=== PATIENT | female | born 1970 | race Caucasian/White ===

== ENCOUNTER 2020-03-07 20:07 | Emergency (ER) | payer OTHER ==
[2020-03-07] MEDS ORDERED: ACETAMINOPHEN 500 MG TABLET (FP) ONE (20:44)
[2020-03-07] MEDS ORDERED: ACETAMINOPHEN 500 MG TABLET (FP) PO ONE (20:44)
[2020-03-07 20:51] VITALS: BP 106/73; PULSE 104; TEMP 98.3; BMI 18.6
[2020-03-07] MEDS ORDERED: LIDO 2%/EPI 1:200000 PRESRVFRE (20 ML SDVIAL) ONE (20:57)
--- NOTE | 2020-03-08 00:37 | PDOC ---
Documentation entered by Prasanna Yap SCRIBE, acting as scribe for Marii De León MD. Marii De León MD: This documentation has been prepared by the Fracisco tsoll Angel, SCRIBE, under my direction and personally reviewed by me in its entirety. I confirm that the documentation accurately reflects all work, treatment, procedures, and medical decision making performed by me. History of Present Illness - General Chief Complaint: Injury Stated Complaint: HIT HEAD ON GLASS DOOR Time Seen by Provider: 03/07/20 20:10 History Source: Patient Exam Limitations: No Limitations - History of Present Illness Initial Comments: 03/07/20 20:56 The patient is a 49 year old female with a significant past medical history of protein s deficiency who presents to the ED with a laceration to her face. The patient states she walked into a glass sliding door, striking her head. The wound was bleeding at the time but she applied pressure to stop it. The patient denies any LOC and states the door didnt shatter. She does report an episode of palpitations but feels fine here in the ED. The patients immunizations are up to date. The patient notes easy bruising due to her protein s deficiency but has never had trouble healing. The patient denies any vision changes, neck pain, or any other complaints. Past History - Medical History Allergies/Adverse Reactions: Allergies Allergy/AdvReac Type Severity Reaction Status Date / Time No Known Allergies Allergy Verified 03/07/20 20:08 Home Medications: Ambulatory Orders Alprazolam [Xanax] 1 mg PO PRN 03/07/20 Fluoxetine HCl [Prozac] mg PO DAILY 03/07/20 Trazodone HCl 50 mg PO HS 03/07/20 - Psycho-Social/Smoking History Smoking History: Current every day smoker Have you smoked in the past 12 months: Yes Number of Cigarettes Smoked Daily: 6 'Breaking Loose' booklet given: 10/26/13 Review of Systems - Review of Systems Able to Perform ROS?: Yes Comments:: 03/07/20 20:59 GENERAL/CONSTITUTIONAL: No fever or chills. No weakness. HEAD, EYES, EARS, NOSE AND THROAT: No change in vision. No ear pain or discharge. No sore throat. CARDIOVASCULAR: No chest pain or shortness of breath. RESPIRATORY: No cough, wheezing, or hemoptysis. GASTROINTESTINAL: No nausea, vomiting, diarrhea or constipation. GENITOURINARY: No dysuria, frequency, or change in urination. MUSCULOSKELETAL: No joint or muscle swelling or pain. No neck or back pain. SKIN: +Laceration above the right eyebrow. No rash. NEUROLOGIC: No headache, vertigo, loss of consciousness, or change in strength/sensation. ENDOCRINE: No increased thirst. No abnormal weight change. HEMATOLOGIC/LYMPHATIC: No anemia, easy bleeding, or history of blood clots. ALLERGIC/IMMUNOLOGIC: No hives or skin allergy. *Physical Exam - Physical Exam 03/07/20 20:58 GENERAL: Awake, alert, and fully oriented, in no acute distress HEAD: +2cm full thickness v shaped laceration above mid right eyebrow. EYES: PERRLA, EOMI, sclera anicteric, conjunctiva clear ENT: Auricles normal inspection, hearing grossly normal, nares patent, oropharynx clear without exudates. Moist mucosa NECK: Normal ROM, supple, no lymphadenopathy, JVD, or masses LUNGS: Breath sounds equal, clear to auscultation bilaterally. No wheezes, and no crackles HEART: Regular rate and rhythm, normal S1 and S2, no murmurs, rubs or gallops ABDOMEN: Soft, nontender, normoactive bowel sounds. No guarding, no rebound. No masses EXTREMITIES: Normal range of motion, no edema. No clubbing or cyanosis. No cords, erythema, or tenderness NEUROLOGICAL: Cranial nerves II through XII grossly intact. Normal speech, normal gait SKIN: Warm, Dry, normal turgor, no rashes or lesions noted. Procedures - Laceration/Wound Repair Right Eye Wound Length: to 2.5 cm Wound's Depth, Shape: linear Betadine Prep: No (Hibiclens/ethinyl) Anesthesia: 2% Lidocaine w/ Epi Amount of Anesthetic (ccs): 1 Wound Repaired With: Sutures Suture Size/Type: 5:0 Number of Sutures: 4 Layer Closure: No Sterile Dressing Applied: No Splint Applied: No Sling Applied: No Progress: Right eyebrow wound cleansed using Hibiclens/ethanol solution and sterilely draped. 1 mL of 2% lidocaine with epinephrine injected into the wound for local anesthesia. Wound irrigated/cleansed with 20 mL of sterile normal saline. Wound edges closely approximated and 4 interrupted sutures of 5-0 nylon placed for closure of the wound. Bacitracin applied to the wound surface. Patient tolerated procedure well ED Progress Note - Progress Note Progress Note: As noted above, this 49-year-old woman with protein S deficiency and anxiety but no other significant past medical history presents with laceration sustained above her right eyebrow when she accidentally bumped into a sliding glass door. She had no loss of consciousness and did not sustain any other injury. She is alert and oriented x3 on exam without neurologic deficit. 2 cm full-thickness laceration present in the mid right eyebrow area. Repair of the laceration performed as noted above Patient discharged with instructions to elevate her head tonight and apply cool dry compresses to the area around the laceration to prevent extensive bruising (patient has history of extensive bruising secondary to her protein S deficiency). She should apply bacitracin or Neosporin ointment to the wound daily until sutures are removed. For 2 days, she should keep the area as dry as possible, then can wet the area briefly but no immersion until sutures out. Sutures should be removed in 5 to 7 days (patient's plastic surgeon had texted her that the sutures should be removed in 7 days). She should return here sooner or see her doctor if there are signs of infection (redness/swelling/pain around the wound) Discharge - Discharge Information Problems reviewed: Yes Clinical Impression/Diagnosis: Eyebrow laceration Qualifiers: Encounter type: initial encounter Laterality: right Qualified Code(s): S01.111A - Laceration without foreign body of right eyelid and periocular area, initial encounter Condition: Stable Disposition: HOME - Follow up/Referral - Patient Discharge Instructions Patient Printed Discharge Instructions: How to Care for a Laceration After Repair Additional Instructions: Keep head elevated with extra pillow tonight Cold, dry compresses to area of wound for the next 24 hours Keep wound as dry as possible for 48 hours, then can wet briefly until sutures are out Bacitracin/Neosporin ointment to wound daily until sutures removed Return or see your doctor if area becomes red, swollen or more painful Have sutures removed in 1 week as per your plastic surgeon - Post Discharge Activity
== END 2020-03-07 21:25 | disposition home or self-care (01) ==
LOC: FER 20:07
PROC: 0HQ0XZZ Repair Scalp Skin, External Approach (ICD-10-PCS; principal; 2020-03-07)
DX: S01.111A Laceration without foreign body of right eyelid and periocular area, initial encounter (principal)
CPT/HCPCS: 99283-25

== ENCOUNTER 2023-07-09 10:41 | Inpatient (IN) | payer OTHER ==
[2023-07-09] MEDS ORDERED: SODIUM CHLORIDE 0.9% 500 ML INFUS.BAG IV ONE ×2 (11:25→12:34)
[2023-07-09] MEDS ORDERED: ONDANSETRON 4 MG/2 ML VIAL IVPUSH ONE (11:25)
[2023-07-09] MEDS ORDERED: ONDANSETRON 4 MG/2 ML VIAL ONE (11:31)
[2023-07-09] MEDS ORDERED: FAMOTIDINE 20 MG/50 ML IVPB 20 MG/50 ML MG IVPB ONE ×2 (11:42→12:13)
[2023-07-09] MEDS ORDERED: LORazepam 2 MG/ML SDV VIAL IVPUSH STA (11:42)
[2023-07-09 12:24] LABS: HEMOGLOBIN 11.9 G/dL (10.7-15.3); MCH 33.6 pg (25.7-33.7); MCHC 33.9 g/dl (32.0-36.0); MEAN CELL VOLUME 98.8 fl (80-96); MEAN PLT VOLUME 8.3 fl (7.5-11.1); RBC 3.54 10^6/uL (3.60-5.2); WHITE BLOOD COUNT 3.9 10^3/uL (4.0-10.8)
[2023-07-09 12:28] LABS: ALBUMIN 4.5 g/dl (3.4-5.0); BILIRUBIN,TOTAL 1.2 mg/dl (0.2-1); CALCIUM 10.3 mg/dl (8.5-10.1); CREATININE 0.7 mg/dl (0.6-1.3); INR 1.06 (0.83-1.09); MAGNESIUM 1.2 mg/dL (1.8-2.4); PHOSPHOROUS 3.2 (2.5-4.9); POTASSIUM 3.3 mmol/L (3.5-5.1); PROTHROMBIN TIME (PATIENT) 12.3 SEC (9.7-13.0); TOT PROT 7.1 g/dl (6.4-8.2)
[2023-07-09 12:31] LABS: ACTIVATED PTT 25.3 SECONDS (25.2-36.5)
[2023-07-09] MEDS ORDERED: MAGNESIUM SULF 50% (8.12 MEQ/2 ML-1 GM VIAL) IVPB ONE (12:35)
[2023-07-09] MEDS ORDERED: POTASSIUM CHLORIDE TABS 20 MEQ TABLET.ER (FP) PO ONE ×2 (12:35→12:54)
[2023-07-09] MEDS ORDERED: KCL 10 MEQ IVPB 10 MEQ/100 ML INFUS.BAG IVPB SCH (12:45)
[2023-07-09] MEDS ORDERED: MAGNESIUM SULFATE IN WATER 2 GM/50 ML IVPB IVPB ONE (12:53)
[2023-07-09] MEDS ORDERED: KCL 10 MEQ IVPB 10 MEQ/100 ML INFUS.BAG IVPB ONE (12:54)
[2023-07-09 12:55] LABS: VENOUS BASE EXCESS 1.9 mmol/L (-2-2); VENOUS O2 SATURATION 46.3 % (70-80); VENOUS PCO2 40.1 mmHg (38-52); VENOUS PH 7.434 (7.310-7.410)
[2023-07-09 12:59] LABS: EPITHELIAL CELLS 0-5 /hpf
[2023-07-09] MEDS ORDERED: LORazepam 2 MG/ML SDV VIAL IVPUSH ONE (14:39)
[2023-07-09] MEDS ORDERED: SODIUM CHLORIDE 1,000 ML IV SCH (15:00)
[2023-07-09] MEDS ORDERED: ONDANSETRON 4 MG/2 ML VIAL IVPUSH PRN (15:03)
[2023-07-09] MEDS ORDERED: LORazepam 2 MG/ML SDV VIAL IVPUSH PRN (15:04)
[2023-07-09] MEDS: chlordiazePOXIDE HCL 25 MG CAPSULE PO SCH ×2 (16:59→22:17)
[2023-07-09] MEDS: THIAMINE HCL 200 MG/2 ML VIAL IVPB SCH (16:59)
[2023-07-09 18:27] LABS: CALCIUM 9.2 mg/dl (8.5-10.1); CREATININE 0.7 mg/dl (0.6-1.3); MAGNESIUM 2.1 mg/dL (1.8-2.4); PHOSPHOROUS 2.7 (2.5-4.9); POTASSIUM 3.6 mmol/L (3.5-5.1)
[2023-07-09] MEDS ORDERED: DEXTROSE 5%-WATER - 1,000 ML IV SCH (19:00)
[2023-07-09 22:19] LABS: CALCIUM 9.4 mg/dl (8.5-10.1); CREATININE 0.7 mg/dl (0.6-1.3); POTASSIUM 3.3 mmol/L (3.5-5.1)
[2023-07-09 23:39] VITALS: BMI 19.6
[2023-07-10 01:16] LABS: METHADONE, UR NEGATIVE (NEGATIVE); PHENCYCLIDINE,URINE NEGATIVE (NEGATIVE)
[2023-07-10 02:18] LABS: COCAINE, UR NEGATIVE (NEGATIVE); OPIATES, URI NEGATIVE (NEGATIVE); URINE AMPHETAMINES NEGATIVE (NEGATIVE); URINE BARBITURATES NEGATIVE (NEGATIVE); URINE BENZODIAZEPINES POSITIVE (NEGATIVE)
[2023-07-10] MEDS: chlordiazePOXIDE HCL 25 MG CAPSULE PO SCH (02:51)
[2023-07-10] MEDS ORDERED: MAG HYDROX/AL HYDROX/SIMETH 30 ML UNIT-DOSE CUP PO PRN (03:26)
[2023-07-10 08:39] LABS: HEMATOCRIT 30.6 % (32.4-45.2); HEMOGLOBIN 10.4 G/dL (10.7-15.3); MCH 33.4 pg (25.7-33.7); MEAN CELL VOLUME 98.5 fl (80-96); MEAN PLT VOLUME 7.9 fl (7.5-11.1); PLATELET COUNT 175.3 10^3/uL (134-434); RBC 3.11 10^6/uL (3.60-5.2); WHITE BLOOD COUNT 3.9 10^3/uL (4.0-10.8)
[2023-07-10] MEDS: THIAMINE HCL 200 MG/2 ML VIAL IVPB SCH (09:24)
[2023-07-10] MEDS ORDERED: FLUoxetine HCL 10 MG CAPSULE PO SCH (10:00)
[2023-07-10] MEDS ORDERED: FOLIC ACID 1 MG TABLET (FP) PO SCH (10:00)
[2023-07-10 10:59] LABS: ALBUMIN 4.4 g/dl (3.4-5.0); BILIRUBIN,TOTAL 1.2 mg/dl (0.2-1); CALCIUM 9.2 mg/dl (8.5-10.1); CREATININE 0.7 mg/dl (0.6-1.3); MAGNESIUM 1.9 mg/dL (1.8-2.4); PHOSPHOROUS 2.3 (2.5-4.9); POTASSIUM 3.1 mmol/L (3.5-5.1); TOT PROT 6.8 g/dl (6.4-8.2)
[2023-07-10] MEDS ORDERED: DESMOPRESSIN ACETATE 4 MCG/ML AMP IVPB ONE (11:11)
[2023-07-10] MEDS ORDERED: NAPH,MB-DB/K PH,MBDB POWDER PACKET PO SCH (14:00)
[2023-07-10] MEDS: DEXTROSE 5%-WATER - 1,000 ML with POTASSIUM CHLORIDE 20 MEQ IV SCH ×2 (14:00→14:06)
[2023-07-10 14:32] LABS: CALCIUM 8.9 mg/dl (8.5-10.1); CREATININE 0.6 mg/dl (0.6-1.3); POTASSIUM 3.4 mmol/L (3.5-5.1)
[2023-07-10 16:14] VITALS: BP 118/78; PULSE 86; RESP 18; TEMP 98
[2023-07-10] MEDS ORDERED: DESMOPRESSIN ACETATE 4 MCG/ML AMP IVPB SCH ×2 (17:00→17:30)
[2023-07-10] MEDS ORDERED: DESMOPRESSIN ACETATE 2 MCG in SODIUM CHLORIDE 50 ML IVPB SCH (17:30)
== END 2023-07-10 15:03 | disposition left against medical advice (07) | DRG 894 ==
LOC: FER 10:41 → FM/S 14:25 → UNDOADMIN 14:25
PROVIDERS: ADMIT Internal Medicine; ATTEND Internal Medicine
PROC: HZ2ZZZZ Detoxification Services for Substance Abuse Treatment (ICD-10-PCS; principal; 2023-07-09)
DX: F10.239 Alcohol dependence with withdrawal, unspecified (principal); E87.1 Hypo-osmolality and hyponatremia; R56.9 Unspecified convulsions; R19.7 Diarrhea, unspecified; E87.6 Hypokalemia; E83.42 Hypomagnesemia; F41.8 Other specified anxiety disorders; E86.0 Dehydration
CPT/HCPCS: 36415; 70450-TC; 80048; 80053; 80061; 80307; 81003; 81015; 82306; 82607; 82746; 82803; 83690; 83735; 84100; 84439; 84443; 84703; 85027; 85610; 85730; 93005; J2597